=== PATIENT | female | born 1975 | race Two or more races ===

== ENCOUNTER 2019-04-20 12:15 | Inpatient (IN) | payer OTHER ==
[~2019-04-20] VITALS: Ht 162.6 cm; Wt 64.9 kg
[2019-04-20] MEDS ORDERED: LEVO-T125 MCG PO (14:44)
[2019-04-27] MEDS ORDERED: OXYC1TAB9 PO (06:32)
== END 2019-04-27 09:31 | disposition home or self-care (01) | DRG 743 ==
LOC: O/R 04-25 06:05 → OB/GYN 04-25 10:30 → SURH 04-25 10:45 → O/R 04-25 12:15 → SURH 04-25 12:15 → OB/GYN 04-27 09:31
PROVIDERS: ADMIT Obstetrics & Gynecology Gynecology
PROC: 0UT97ZZ Resection of Uterus, Via Natural or Artificial Opening (ICD-10-PCS; principal; 2019-04-25 10:45)
DX: N72 Inflammatory disease of cervix uteri (principal); N92.0 Excessive and frequent menstruation with regular cycle; E03.8 Other specified hypothyroidism

== ENCOUNTER 2019-07-15 11:32 | Outpatient (CLI) | payer OTHER ==
[~2019-07-15 11:32] MED LIST: LEVO-T125 MCG PO; OXYC1TAB9 PO
== END 2019-07-15 12:35 | disposition home or self-care (01) ==
LOC: LAB 11:32
DX: N82.3 Fistula of vagina to large intestine (principal); Z86.010 Personal history of colon polyps

== ENCOUNTER 2019-07-18 09:07 | Outpatient (CLI) | payer OTHER | END 2019-07-18 09:37 | disposition home or self-care (01) | LOC: TOM 09:07 | DX: N82.3 Fistula of vagina to large intestine (principal); Z86.010 Personal history of colon polyps ==

== ENCOUNTER 2019-08-04 07:40 | Day surgery (SDC) | payer OTHER | END 2019-08-04 11:00 | disposition home or self-care (01) | LOC: AMB-ENDOS 07:40 | DX: K62.89 Other specified diseases of anus and rectum (principal); Z12.11 Encounter for screening for malignant neoplasm of colon ==

== ENCOUNTER 2019-08-10 08:38 | Inpatient (IN) | payer OTHER ==
[~2019-08-10] VITALS: Ht 162.6 cm; Wt 64.4 kg
[2019-08-24] MEDS ORDERED: ARMOUR THYROID120 M1 PO (11:01)
[2019-08-29] MEDS ORDERED: NP THYROID 120120 MG PO (10:44)
[2019-09-02] MEDS ORDERED: HYOSCYAMINE0.125 M1 SL (09:06)
[2019-09-02] MEDS ORDERED: GABAPENTIN300 MG PO (09:06)
[2019-09-02] MEDS ORDERED: PERCOCET 5-3251 EACH PO (09:06)
[2019-09-02] MEDS ORDERED: KETO10TA2 PO (09:07)
== END 2019-09-02 09:41 | disposition home or self-care (01) | DRG 330 ==
LOC: O/R 08-29 06:40 → SURH 08-29 06:40
PROVIDERS: Obstetrics & Gynecology Gynecology; ADMIT Surgery; ATTEND Surgery
PROC: 0DJD8ZZ Inspection of Lower Intestinal Tract, Via Natural or Artificial Opening Endoscopic (ICD-10-PCS; 2019-08-29)
PROC: 0UQG4ZZ Repair Vagina, Percutaneous Endoscopic Approach (ICD-10-PCS; principal; 2019-08-29 07:00)
PROC: 0DBP4ZZ Excision of Rectum, Percutaneous Endoscopic Approach (ICD-10-PCS; 2019-08-29 07:00)
DX: N82.4 Other female intestinal-genital tract fistulae (principal); N99.71 Accidental puncture and laceration of a genitourinary system organ or structure during a genitourinary system procedure; R73.01 Impaired fasting glucose; E03.8 Other specified hypothyroidism

== ENCOUNTER 2020-11-01 09:05 | Day surgery (SDC) | payer OTHER ==
[~2020-11-01 09:05] MED LIST changes: +ARMOUR THYROID120 M1 PO; +GABAPENTIN300 MG PO; +HYOSCYAMINE0.125 M1 SL; +KETO10TA2 PO; +NP THYROID 120120 MG PO; +PERCOCET 5-3251 EACH PO
== END 2020-11-01 14:20 | disposition home or self-care (01) ==
LOC: AMB-ENDOS 09:05
PROVIDERS: ATTEND Surgery
DX: K62.89 Other specified diseases of anus and rectum (principal); Z20.822 Contact with and (suspected) exposure to COVID-19